=== PATIENT | male | born 2000 | race Caucasian/White ===

== ENCOUNTER 2020-03-24 19:06 | Emergency (ER) | payer MEDICAID, OTHER ==
[~2020-03-24] VITALS: Ht 172.7 cm; Wt 59.0 kg
[2020-03-24 20:55] LABS: BASOPHILS % 0.2 % (0.0-2.0); HEMATOCRIT. 47.3 % (42.0-52.0); HEMOGLOBIN. 15.8 g/dL (14.0-18.0); LYMPHOCYTES % 9.8 % (20.0-50.0); MEAN CORPUSCULAR HEMOGLOBIN 31.3 pg (28.0-32.0); MEAN CORPUSCULAR VOLUME 93.7 fL (80.0-94.0); MEAN PLATELET VOLUME 9.6 fl (7.4-10.4); MONOCYTES % 2.9 % (2.0-8.0); NEUTROPHILS % 87.1 % (40.0-76.0); PLATELET 168 x1000/uL (130-400); RED BLOOD CELL COUNT 5.04 mill/uL (4.7-6.1)
[2020-03-24 21:00] LABS: CHLORIDE 108 mEq/L (98-107)
[2020-03-24 21:06] LABS: ETHANOL BLOOD < 10 mg/dL
[2020-03-24 22:30] VITALS: BP 106/65
== END 2020-03-24 23:55 | disposition home or self-care (01) ==
LOC: ER 19:46
DX: R55 Syncope and collapse (principal); M25.571 Pain in right ankle and joints of right foot
CPT/HCPCS: 36415; 71045; 73610; 80053; 80320; 83880; 84484; 85025; 93005; 99285; G0480

== ENCOUNTER 2021-12-02 13:26 | Emergency (ER) | payer SELFPAY ==
[~2021-12-02] VITALS: Ht 172.7 cm; Wt 59.0 kg
[2021-12-02 13:51] VITALS: BP 120/66
[2021-12-02] MEDS ORDERED: CYCL5TAB MT (17:34)
[2021-12-02] MEDS ORDERED: IBUP-2029 MT (17:35)
[2021-12-02] MEDS ORDERED: KETOROLAC 30MG/ML VIAL IM ONE (17:45)
[2021-12-02] MEDS ORDERED: CYCLOBENZAPRINE 10MG TABLET PO ONE (17:45)
== END 2021-12-02 18:04 | disposition home or self-care (01) ==
LOC: ER 13:26
DX: S39.012A Strain of muscle, fascia and tendon of lower back, initial encounter (principal); F14.10 Cocaine abuse, uncomplicated; V43.52XA Car driver injured in collision with other type car in traffic accident, initial encounter; Y93.89 Activity, other specified; Y92.488 Other paved roadways as the place of occurrence of the external cause
CPT/HCPCS: 96372; 99283; J1885